=== PATIENT | male | born 1960 | race Caucasian/White ===

== ENCOUNTER → 2020-05-06 | Outpatient (CLI) | payer BC, OTHER ==
[~2020-05-06] MED LIST: ADDERALL 20 MG20 MG PO; EUTHYROX75 MCG PO; JARDIANCE10 MG PO; MELOXICAM15 MG PO; METFORMIN HCL500 M1 PO; MULTI VITAMIN1 EACH PO; ROSUVASTATIN CA20 MG PO; VITAMIN D31250 MC1 PO
== END ==
LOC: LAB 08:00
PROVIDERS: ATTEND Student in an Organized Health Care Education/Training Program
DX: Z01.812 Encounter for preprocedural laboratory examination (principal); Z11.59 Encounter for screening for other viral diseases

== ENCOUNTER 2020-05-11 11:07 | Day surgery (SDC) | payer BC, OTHER ==
[2020-05-04 12:32] LABS: HEMATOCRIT 52.4 % (42.0-52.0); HEMOGLOBIN 18.1 gm/dL (14.0-18.0); MCH 33.3 pg (26.0-34.0); MCHC 34.6 g/dL (28.0-37.0); MCV 96.5 fL (80.0-100.0); RBC 5.43 mil/uL (4.50-6.00); RDW 15.1 % (10.5-14.5); WBC 8.4 thou/uL (4.0-11.0)
[2020-05-04 12:33] LABS: URINE BILIRUBIN NEGATIVE (Negative); URINE BLOOD NEGATIVE (Negative); URINE CLARITY CLEAR; URINE COLOR YELLOW; URINE GLUCOSE-RANDOM* 3+ (Negative); URINE KETONES TRACE (Negative); URINE LEUKOCYTES-REFLEX NEGATIVE (Negative); URINE NITRITE-REFLEX NEGATIVE (Negative); URINE PROTEIN (DIPSTICK) NEGATIVE (Negative); URINE SPECIFIC GRAVITY >= 1.030 (1.005-1.035); URINE UROBILINOGEN 0.2 E.U./dl (0.2-1.0)
[2020-05-04 12:42] LABS: ALBUMIN 4.4 g/dL (3.4-5.0); CALCIUM 8.7 mg/dL (8.5-10.1); CREATININE 0.8 mg/dL (0.7-1.3); POTASSIUM 4.2 mmol/L (3.5-5.1)
[2020-05-04 12:47] LABS: INR 1.1; PROTIME 11.3 Seconds (9.3-11.4)
--- NOTE | 2020-05-04 13:51 | EKG ---
[facility] [place] [address] ELECTROCARDIOGRAM REPORT Name: JUSTINE BALL Room #: PRE [facility]..#: [id number] Admission: Attend Phys: Juventino Edward MD Discharge: Date of : 56 Report #: [id number] THIS REPORT FOR: cc: TAL RAMIREZ Luis F. MD ~ THIS REPORT FOR: //name// [facility] Test Date: 2020-05-04 Test Time: 12:19:40 Pat Name: JUSTINE BALL Department: Room: Gender: M [employer]ging [employer] Operator: DANA : 1960 Requested By: Juventino Edward Order Number: [id number] : Rigoberto Harding Measurements Intervals Hawi Rate: 79 P: 60 NV: 154 QRS: 46 QRSD: 95 T: 52 QT: 340 QTc: 390 Interpretive Statements Sinus rhythm No previous ECG available for comparison Electronically Signed On 05-04-2020 13:51:01 CDT by Rigoberto Harding [email or web address] <ELECTRONICALLY SIGNED> By: Rigoberto Harding MD 05/04/20 1351 1219 1219 Rigoberto Harding MD /MAHESH
[2020-05-05 07:08] LABS: GLYCOHEMOGLOBIN (HGB A1C) 6.3 % (4.8-5.6)
[~2020-05-11] VITALS: Ht 188 cm; Wt 140.6 kg
--- NOTE | ~2020-05-11 | O ---
[facility] [place] [address] OPERATIVE REPORT Name: JUSTINE BALL Room #: 150-10 [facility]can[facility]ongDuncan#: [id number] Admission: 05/11/20 Attend Phys: Juventino Edward MD Discharge: Date of : 56 Report #: [id number] THIS REPORT FOR: cc: TAL RAMIREZ - Family physician unknown Juventino Edward MD ~ CC: TAL GRAFF unknown Juventino Edward DATE OF SERVICE: 05/11/2020 PREOPERATIVE DIAGNOSIS: Right hip osteoarthritis. POSTOPERATIVE DIAGNOSIS: Right hip osteoarthritis. PROCEDURE: Right total hip arthroplasty. SURGEON: Juventino Edward MD. SEED SPECIALIST: Chinyere Garcia PA-C. INDICATIONS FOR SEED SPECIALIST: Throughout the case, extensive retraction and manipulation of the hip was required. This was afforded to me by my assistant terminal manager. ANESTHESIA: General. IMPLANTS: [employer] size 14 high offset Synergy press fit stem, a size 58 R3 acetabular cup with 1 acetabular screw, a size 40+4 Oxinium head and a single Accord cerclage cable for prophylactic fixation. ESTIMATED BLOOD LOSS: 200 mL. COMPLICATIONS: None. SPECIMENS: None. CONDITION UPON LEAVING THE OPERATING ROOM: Stable. INDICATIONS FOR PROCEDURE: The patient is a 60-year-old gentleman with severe right hip osteoarthritis. He had failed conservative measures for this and after discussion with him, he elected for right total hip arthroplasty. DESCRIPTION OF PROCEDURE: Risks, benefits, alternatives, complications were discussed in detail with the patient including but not limited to risk of anesthesia, risk of damage to nerves, arteries, blood vessels, risk for [facility] [address] [place] [address] OPERATIVE REPORT Name: JUSTINE BALL Room #: 150-10 [facility] COUNTYShaye.#: [id number] Admission: 05/11/20 Attend Phys: Juventino Edward MD Discharge: Date of : 56 Report #: [id number] infection, bleeding, risk for continued hip pain, leg length discrepancy, instability and need for reoperation. Informed consent was obtained from the patient. The right hip was appropriately marked in the preoperative holding area. IV Ancef was given for preoperative antibiotics. He was brought to the operating room and placed in supine position on operating room table. General anesthesia was induced without complication. He was then placed in the left lateral decubitus position with the right hip uppermost. Right hip and lower extremity were prepped and draped in normal sterile fashion. Timeout was performed properly identifying the patient and procedure as well as the instrumentation and implants. All in the operating room were in agreement. Standard posterior approach to the hip was made with 10 blade through the skin. Dissection was taken down to fascia with Bovie cautery and Subramanian elevator was used to clean off the fascia. Fresh 10 blade was used to make a fascial incision. This was taken proximally and distally with curved Hoffman scissor. Charnley retractor was placed. Trochanteric bursa was taken down with Bovie cautery. Piriformis tendon was identified, tagged and taken down with Bovie cautery. Short external rotators and capsule were taken down with Bovie cautery. Hip was dislocated and there was extensive osteoarthritic change in femoral head. Femoral neck cut was made 1 cm proximal to lesser trochanter based on preoperative templating and the femoral head was removed. Deep acetabular retractors were placed. Labrum was removed sharply. Pulvinar was removed with Bovie cautery. Acetabulum was then sequentially reamed up to a size 58, at which point, there was excellent bleeding cancellous bone. A size 57 trial cup was placed, found to have a good fit. A final size 58 R3 acetabular cup was placed and seated. One acetabular screw was placed for backup fixation and polyethylene liner for a 40 head was placed. Attention was then turned to the femur. This was reamed and broached up to a size 14; however, the 14 broach did not seem stable. It was possible that we had an intraoperative fracture, although this was not visualized. We put a single Accord cerclage cable around the proximal femur and the broach was placed back down and the broach was then stable. This was trialed with a 40+0 and then a 40+4 head. The hip was reduced, taken through range of motion, found to be stable, found to have good stability and equal leg lengths with the +4 neck. Hip was dislocated. Broach was removed and final size 14 high offset Synergy press fit stem was placed and seated. This was trialed again with a 40+4 head. Hip was reduced, taken through range of motion, found to be stable, found to have equal leg lengths. Hip was dislocated one last time and a final size 40+4 Oxinium head was placed. Hip was reduced, taken through range of motion, found to be stable, found to have equal leg lengths. Wound was thoroughly irrigated with normal saline. Periarticular injection consisting of morphine, ropivacaine, epinephrine and Toradol was placed around the hip joint capsule. A gram of vancomycin was placed deep in the joint. Piriformis tendon was repaired with 0 FiberWire. Fascia was closed with 0 Vicryl, skin was closed with 2-0 Vicryl, skin staple and a RUY dressing was applied. The patient tolerated this [address] [address] OPERATIVE REPORT Name: JUSTINE BALL Heriberto Room #: 150-10 [facility] MDuncanR.#: [id number] Admission: 05/11/20 Attend Phys: Juventino Edward MD Discharge: Date of : 56 Report #: [id number] procedure well and went to recovery room under care of anesthesia postoperatively. By: 1529 [id number] Juventino Edward MD /nt
[2020-05-11 12:39] VITALS: BP 148/69
[2020-05-11 19:48] VITALS: BP 160/75
[2020-05-11 23:56] VITALS: BP 127/66
[2020-05-12 04:33] VITALS: BP 133/68
[2020-05-12 06:03] LABS: HEMATOCRIT 42.4 % (42.0-52.0); HEMOGLOBIN 14.5 gm/dL (14.0-18.0); MCH 32.6 pg (26.0-34.0); MCHC 34.2 g/dL (28.0-37.0); MCV 95.3 fL (80.0-100.0); RBC 4.45 mil/uL (4.50-6.00); WBC 17.1 thou/uL (4.0-11.0)
--- NOTE | 2020-05-12 06:45 | NUR ---
RECEIVED CARE OF THIS PATIENT AT 1900. PATIENT ALERT AND ORIENTED X4. DRESSING ON R HIP D/I. ICE APPLIED. HAS IAN'S AND SCD'S ON. C/O MINOR PAIN, SCHEDULED PAIN MED GIVEN AND PAIN WENT TO 0. SLEPT OFF AND ON DURING NIGHT.
[2020-05-12 08:10] VITALS: BP 124/67
--- NOTE | 2020-05-12 09:44 | NUR ---
Assumed care of pt at 0700. Pt a&ox4. Dressing on rt hip c/d/i. Pain controlled with prn pain meds. IVF infusing. Pt worked with physical therapy this am. Tolerated will. Possible d/c to home. Call light within reach. Will continue to monitor.
--- NOTE | 2020-05-12 10:03 | NUR ---
ASSESSMENT: CM REVIEWED CHART AND SPOKE WITH PATIENT. PT IS HERE FOR TOTAL HIP REPLACEMENT. PT REPORTS HE LIVES AT HOME WITH HIS IN A HOUSE. PT REPORTS HE USUALLY ENTERS THROUGH THE GARAGE AND HAS ABOUT 3-4 STEPS. PT REPORTS HE THEN HAS ABOUT 6-7 STEPS WITH HANDRAILS TO HIS BEDROOM. PT REPORTS HE WAS USING A CANE AT TIMES FOR AMBULATION. PT REPORTS HE HAS A SHOWER CHAIR AND COMMODE AT HOME THAT WAS FROM A PREVIOUS FAMILY MEMBER. PT REPORTS HE HAS NOT HAD HH OR BEEN TO A SNF IN THE PAST. PT HAS A CPAP MACHINE AT HOME. PT/OT SAW PATIENT AND THEY ARE RECOMMENDING A WALKER AT DISCHARGE. PT REPORTS NO PREFERENCE OF DME COMPANY. CM NOTIFIED PROVIDER PLUS WHO STATES THEY WILL DELIVER AT WALKER TO PATIENTS ROOM BEFORE LUNCH. CM NOTIFIED BEDSIDE RN. PLANS ARE FOR PATIENT TO RETURN HOME AT DISCHARGE. CM WILL CONTINUE TO FOLLOW.
[2020-05-12 10:05] VITALS: BP 124/67
== END 2020-05-12 12:37 | disposition home or self-care (01) ==
LOC: OR 11:07 → TBA 11:07 → OR 11:24 → 4S 16:49 → OR 05-12 12:37
PROVIDERS: ATTEND Orthopaedic Surgery
DX: M16.11 Unilateral primary osteoarthritis, right hip (principal); M25.551 Pain in right hip; E78.5 Hyperlipidemia, unspecified; E11.9 Type 2 diabetes mellitus without complications; G47.30 Sleep apnea, unspecified; Z98.890 Other specified postprocedural states; Z79.899 Other long term (current) drug therapy
CPT/HCPCS: 50010; 50101; 50382; 50414; 51412; 51771; 53000; 53078; 53368; 54118; 56524; 56527; 56528; 56530; 57095; 57103; 57496; 62110; 62900; 70005